=== PATIENT | female | born 1995 | race Caucasian/White ===

== ENCOUNTER 2018-04-02 11:27 | Emergency (ER) | payer OTHER ==
[~2018-04-02] VITALS: Ht 170.2 cm; Wt 52.6 kg
[2018-04-02 12:08] VITALS: BP 123/79
--- NOTE | 2018-04-02 12:20 | NUR ---
REHAB MESSAGE LEFT WITH [facility] IN [place]
--- NOTE | 2018-04-02 12:33 | ER.PDOC ---
General Chief Complaint: Medical Clearance Stated Complaint: MED CLEARANCE Time seen by MD: 12:30 Source: patient, family History of Present Illness Initial Comments Wants to go to rehab for Meth abuse. Denies HI or SI. Severity: moderate Past Medical History Medical History: no pertinent history Surgical History: no surgical history LMP (females 10-50): OVER 4 MONTHS AGO Social History Smoking: greater than 1 pack/day Alcohol Use: heavy Drug Use: Meth Review of Systems Constitutional: no symptoms reported EENTM: no symptoms reported Respiratory: no symptoms reported Cardiovascular: no symptoms reported Gastrointestinal: no symptoms reported Psychiatric/Neurological: see HPI All Other Systems: Reviewed and Negative Physical Exam General Appearance: No acute distress, Alert Neck: Non-Tender, Full Range of Motion, Supple, Normal Inspection Respiratory: chest non-tender, lungs clear, normal breath sounds, no respiratory distress, no accessory muscle use Cardiovascular: Normal Peripheral Pulses, Regular Rate, Rhythm, No Edema, No Gallop, No JVD, No Murmur Gastrointestinal: Normal Bowel Sounds, No Organomegaly, No Pulsatile Mass, Non Tender, Soft Extremities: Non-Tender, Normal Range of Motion, No Evidence of Trauma, No Edema Neurological/Psychiatric: Alert, Normal Mood/Affect, Calm, film developer II-XII NML as Tested, Oriented x 3 Appearance/Memory/Insight: Appropriate Appearance, Appropriate Insight, Neat, No Memory Impairment Behavior/Eye Contact/Speech: Cooperative, Good Eye Contact, Normal Speech Thoughts/Hallucinations: Normal Thought Pattern, No Apparent Hallucination Departure Time of Disposition: 12:32 Disposition: 01 HOME, SELF-CARE Impression: Primary Impression: Methamphetamine abuse Condition: Stable Referrals: ANIKA NEWBERRY MD (PCP) PRIMARY CARE PROVIDER Additional Instructions: F/U with substance abuse program Duration or Time Spent with Pa: 20 mins VENUS SIMMS MD April 02, 2018 12:33
--- NOTE | 2018-04-02 12:40 | NUR ---
DISCHARGE PTS FATHER GIVEN WRITTEN INFORMATION FOR [facility] AND INSTRUCTED TO FOLLOW UP WITH THEM IMMEDIATELY
[2018-04-02 12:42] VITALS: BP 123/79
--- NOTE | 2018-04-02 13:40 | PCM.EKG ---
[facility] Test Date: 2018-04-02 Test Time: 12:10:48 Pat Name: HUBER CASTREJON Department: Room: Gender: F Finance Advisor: : [id number] Requested By: VENUS SIMMS Order Number: [id number] Reading MD: Venus SIMMS Measurements Intervals [place] Rate: 85 P: 79 CT: 132 QRS: 88 QRSD: 84 T: 73 QT: 386 QTc: 459 Interpretive Statements Normal sinus rhythm with sinus arrhythmia Normal ECG No previous ECG available for comparison Electronically Signed On 04-02-2018 22:30:21 CDT by Venus SIMMS Please click the below link to view image of tracing.
== END 2018-04-02 12:40 | disposition home or self-care (01) ==
LOC: ER 11:27
DX: F15.10 Other stimulant abuse, uncomplicated (principal); F17.210 Nicotine dependence, cigarettes, uncomplicated
CPT/HCPCS: 93005; 99283